=== PATIENT | male | born 1975 | race Caucasian/White ===

== ENCOUNTER 2024-06-28 11:27 | Emergency (ER) | payer OTHER, SELFPAY ==
[2024-06-28] VITALS (9 sets, daily range): BP systolic 111–123; BP diastolic 57–82; PULSE 61–82; RESP 18; TEMP 37.1; O2SAT 92–99; BMI 34.5
[2024-06-28 11:55] LABS: Add Manual Diff / Slide Review NO; Basophils Absolute Auto 100 /uL (0-100); Basophils Percent Auto 0.6 % (0-2); Eosinophils Absolute Auto 100 /uL (0-450); Eosinophils Percent Auto 0.7 % (2-4); Hematocrit 38.5 % (41-53); Hemoglobin 12.7 g/dL (13.5-17.5); Lymphocytes Absolute Auto 900 /uL (1100-4500); Lymphocytes Percent Auto 5.3 % (25-40); Mean Corpuscular HGB Conc 32.9 % (30-36); Mean Corpuscular Hemoglobin 28.9 PG (26-34); Mean Corpuscular Volume 87.8 fL (80-100); Monocytes Absolute Auto 1700 /uL (0-900); Neutrophils Absolute Auto 14000 /uL (1500-7000); Neutrophils Percent Auto 83.4 % (50-75); Platelet Count 405 X10^3/uL (150-400); Red Blood Cell Count 4.39 X10^6/uL (4.5-5.9); Red Cell Distribution Width 16.2 % (11.6-14.8); White Blood Cell Count 16.9 X10^3/uL (4.5-11.0)
[2024-06-28 12:07] LABS: Alanine Aminotransferase 49 IU/L (<50); Albumin Globulin Ratio 1.2 (1.0-2.8); Alkaline Phosphatase 99 U/L (38-126); Aspartate Aminotransferase 35 IU/L (17-59); BUN Creatinine Ratio 8.3 (6-22); Bilirubin Total 0.9 mg/dL (0.2-1.3); Blood Urea Nitrogen 11 mg/dL (9-20); Calcium 9.8 mg/dL (8.4-10.2); Carbon Dioxide 24 mmol/L (22-32); Chloride 96 mmol/L (98-107); Estimated Glomerular Filt Rate > 60 mL/min (>60); Globulin 3.4 g/dL (1.7-4.1); Glucose 123 mg/dL (70-99); HEMOLYSIS < 15 (0-50); Lipase 46 U/L (23-300); Potassium 4.6 mmol/L (3.4-5.1); Sodium 130 mmol/L (137-145); Total Protein 7.4 g/dL (6.3-8.2)
--- NOTE | 2024-06-28 12:20 | ED_ITS ---
HPI - Abdominal Pain General Chief Complaint: Abdominal Pain Stated Complaint: On going stomach pain. Possible Colitis flare up Time Seen by Provider: 06/28/24 11:45 Source: patient Mode of arrival: Ambulatory History of Present Illness HPI narrative: 49-year-old male history ulcerative colitis, kidney transplant 2017 presents with a complaint of fever of 102 yesterday. Patient states he has been having a flare recently over the last several years typically they will self resolve he was had 1 flare where he required prednisone orally after his renal transplant. Patient states he has had abdominal discomfort which she describes as sort of mid abdomen without radiation is relieved when he has a bowel movement he was having up to 10 times daily small diarrhea like stools with dark blood, he states he was not had any changes to urine output he denied any other urinary symptoms. Denies chest pain or shortness of breath. He gets nauseated if he tries to hold his bowel movements but no vomiting. States feels very similar to his prior episodes but has been more prolonged and then developed a fever yesterday. He follows through transplant on every 2 year schedule [facility] and [facility] through the [facility]. he states his initial kidney transplant was related to chronic bleed on mesalamine and caused renal dysfunction. Renal transplant was in 2017 through . Currently is prednisone 5 mg daily, tacrolimus, mycophenolate, losartan, amlodipine, metoprolol and an aspirin 81 mg daily. Was getting prednisone regularly prior to his renal transplant. Was on Humira prior to his renal transplant but stopped this secondary to all of his other immunosuppressants. Denies any other drug allergies. No tobacco, rare alcohol, no recreational drugs. Related Data Previous Rx's Medication Instructions Recorded dicyclomine 10 mg capsule 10 mg PO TID PRN abdominal pain 06/28/24 #10 caps prednisone 10 mg tablets in a dose See Rx Instructions PO .COMPLEX 06/28/24 pack #14 ea Allergies Allergy/AdvReac Type Severity Reaction Status Date / Time No Known Drug Allergies Allergy Verified 06/28/24 11:32 Review of Systems Review of Systems ROS Unobtainable: All systems reviewed & are unremarkable except as noted in HPI and below Patient History Social History Smoking Status: Never smoker Smoking Status: Never smoker Exam Narrative Exam Narrative: GENERAL: Alert and oriented x three, mild distress HEENT: Head normocephalic, atraumatic, EOMI, pupils reactive, face symmetric, moist mucous membranes NECK: Supple, full range of motion CARDIOVASCULAR: Regular rate and rhythm without murmurs, rubs or gallops. RESPIRATORY: Breath sounds equal bilaterally, no wheezes rales or rhonchi. ABDOMEN: Soft, mild periumbilical tenderness. Normoactive bowel sounds all 4 quadrants. No guarding or rebound, rigidity, no mass, no erythema or skin changes noted. : No CVA tenderness EXTREMITIES: Normal range of motion, no clubbing or edema. Neurovascularly intact NEUROLOGICAL: Cranial nerves II through XII grossly intact. Moving all extremities SKIN: Warm, dry, no petechiae, no rashes or lesions. Initial Vital Signs Initial Vital Signs: Vital Signs Temperature 98.7 F 06/28/24 11:32 Pulse Rate 82 06/28/24 11:32 Respiratory Rate 18 06/28/24 11:32 Blood Pressure 123/82 06/28/24 11:32 Pulse Oximetry 97 06/28/24 11:32 Oxygen Delivery Method Room Air 06/28/24 11:32 Course Orders Ordered: ED Orders 06/28/24 11:44 Complete Blood Count AUTO DIFF Stat Comprehensive Metabolic Panel Stat Lipase Stat Procalcitonin Stat 06/28/24 12:30 Lactate (Lactic Acid) Stat 06/28/24 12:41 CT kidney ureter bladder (KUB) Stat 06/28/24 12:47 Blood Culture Stat 06/28/24 13:31 Urine Microscopic Stat Discontinued Medications Dicyclomine HCl (Dicyclomine 10 Mg Capsule) 10 mg PO NOW ONE Stop: 06/28/24 12:47 Last Admin: 06/28/24 12:55 Dose: 10 mg Documented By: DAVID Sodium Chloride (Normal Saline 0.9%) 1,000 mls @ 1,000 mls/hr IV BOLUS ONE Stop: 06/28/24 13:40 Last Infusion: 06/28/24 14:11 Dose: Infused Documented By: Admin: 06/28/24 12:55 Dose: 1,000 mls/hr Documented By: DAVID Ondansetron HCl (Ondansetron 4 Mg/2 Ml Inj) 4 mg IV NOW PRN PRN Reason: Nausea And Vomiting Ondansetron HCl (Ondansetron 4 Mg Odt) 4 mg PO NOW PRN PRN Reason: Nausea And Vomiting Prednisone (Prednisone 20 Mg Tablet) 40 mg PO NOW ONE Stop: 06/28/24 14:08 Last Admin: 06/28/24 14:15 Dose: 40 mg Documented By: DAVID Vital Signs Vital signs: Vital Signs - 8 hr 06/28/24 11:32 06/28/24 11:36 06/28/24 11:38 Temperature 98.7 F Pulse Rate 82 82 80 Respiratory Rate 18 Blood Pressure 123/82 Pulse Oximetry 97 99 97 Oxygen Delivery Method Room Air 06/28/24 11:38 06/28/24 12:00 06/28/24 12:00 Temperature Pulse Rate 75 Respiratory Rate Blood Pressure 122/79 122/76 Pulse Oximetry 95 Oxygen Delivery Method 06/28/24 12:30 06/28/24 12:30 06/28/24 13:00 Temperature Pulse Rate 79 Respiratory Rate Blood Pressure 121/63 121/73 Pulse Oximetry 94 Oxygen Delivery Method 06/28/24 13:00 06/28/24 13:32 06/28/24 13:33 Temperature Pulse Rate 78 72 74 Respiratory Rate Blood Pressure Pulse Oximetry 97 92 97 Oxygen Delivery Method Room Air 06/28/24 13:33 06/28/24 14:00 06/28/24 14:00 Temperature Pulse Rate 61 Respiratory Rate Blood Pressure 119/67 111/57 L Pulse Oximetry 96 Oxygen Delivery Method MDM - Abdominal Pain Lab Data 06/28/24 11:44 06/28/24 11:44 Labs: Lab Results 06/28/24 06/28/24 06/28/24 Range/Units 11:44 12:30 13:31 WBC 16.9 H (4.5-11.0) X10^3/uL RBC 4.39 L (4.5-5.9) X10^6/uL Hgb 12.7 L (13.5-17.5) g/dL Hct 38.5 L (41-53) % MCV 87.8 (80-100) fL MCH 28.9 (26-34) PG MCHC 32.9 (30-36) % RDW 16.2 H (11.6-14.8) % Plt Count 405 H (150-400) X10^3/uL Neut % (Auto) 83.4 H (50-75) % Lymph % (Auto) 5.3 L (25-40) % [place] % (Auto) 10.0 (3-14) % Eos % (Auto) 0.7 L (2-4) % Baso % (Auto) 0.6 (0-2) % Neut # (Auto) 61703 H (2576-9076) /uL Lymph # (Auto) 900 L (3319-1009) /uL [place] # (Auto) 1700 H (0-900) /uL Eos # (Auto) 100 (0-450) /uL Baso # (Auto) 100 (0-100) /uL Sodium 130 L (137-145) mmol/L Potassium 4.6 (3.4-5.1) mmol/L Chloride 96 L (98-107) mmol/L Carbon Dioxide 24 (22-32) mmol/L BUN 11 (9-20) mg/dL Creatinine 1.33 H (0.66-1.25) mg/dL Estimated GFR > 60 (>60) mL/min BUN/Creatinine Ratio 8.3 (6-22) Glucose 123 H (70-99) mg/dL Lactate 1.2 (0.7-2.1) mmol/L Calcium 9.8 (8.4-10.2) mg/dL Total Bilirubin 0.9 (0.2-1.3) mg/dL AST 35 (17-59) IU/L ALT 49 (<50) IU/L Alkaline Phosphatase 99 (38-126) U/L Total Protein 7.4 (6.3-8.2) g/dL Albumin 4.0 (3.5-5.0) g/dL Globulin 3.4 (1.7-4.1) g/dL Albumin/Globulin Ratio 1.2 (1.0-2.8) Lipase 46 (23-300) U/L Procalcitonin 0.164 (<0.5) ng/mL Urine RBC None seen (0-5/HPF) Urine WBC 0-1/hpf (0-5/HPF) Ur Squamous Epith Cells None seen (0-5/HPF) Urine Bacteria None seen (None) Ur Culture Indicated? Cult not indicated Vol Urine Centrifuged 10ml (spun) Point of care testing: Urine Dip Bedside Urine Glucose Negative Bedside Urine Bilirubin - Negative Bedside Urine Ketone - Negative Urine Specific [place] 1.010 Bedside Urine Occult Blood - Negative Bedside Urine pH 6.5 Bedside Urine Protein +/- 15 Bedside Urine Urobilinogen - Negative Bedside Urine Nitrite - Negative Bedside Urine Leukocytes - Negative Esterase MDM Narrative Medical decision making narrative: Labs show white count of 16.9 hemoglobin of 12.7 platelets are 405 predominance of neutrophils. Sodium is 130 chloride 96 creatinine is 1.33 glucose is 123 LFTs are normal. Procalcitonin is 0.164. Lactate is 1.2 Blood cultures obtained. Point of care urine has protein, negative nitrates and leuks, no red cells 1 white cell no squamous no bacteria. CT KUB shows diffuse colonic wall thickening with surrounding inflammation consistent with ulcerative colitis flare. Right pelvic transplant kidney appears grossly within normal limits negative kidneys appear atrophic. Prominent mildly enlarged mesenteric lymph nodes. Small hiatal hernia. CT KUB was obtained as patient has history of renal transplant per patient his creatinine is at baseline but we will avoid contrast at this time as we are looking more for perforation and suspect his use he was source of symptoms. Patient reports fever yesterday none today did have Tylenol this morning, he appears nontoxic with a appropriate vitals but does have a white count is 16 so sepsis labs were added including procalcitonin lactate and blood cultures were obtained particularly in the setting of history of transplant. Patient has a dose of Bentyl here, appears is renally excreted but does not appear to be nephrotoxic or have any interactions did discuss with the pharmacist. Patient states that this was helpful. Discussed findings we will have patient follow up with [facility] transplant team [facility] if doing well or having mild symptoms. We will start on oral prednisone as patient has tolerated in the past he states typically has not had more than 40 mg we will do this for 3 days and then taper down words. He was to call his transplant team to let them know about his current medications. Discussed can try Bentyl but use with caution as it was renally excreted. Discharge Plan Departure Patient Disposition: Home Clinical Impression: Ulcerative colitis Instructions: DI for Ulcerative Colitis Activity Restrictions/Additional Instructions: Follow up with your transplant team [facility] through the [facility] or [facility]. Call to let them know that you are currently on prednisone and received a prescription for Bentyl for spasm. Your CT does show changes consistent with ulcerative colitis. Your labs show your white blood cell count is elevated at 16, creatinine today is 1.33, your sodium is a little low at 130. You do have blood cultures pending. Take steroids until completed. You can take Bentyl 1 tablet every 8 hours as needed for abdominal cramping or spasm. You can take acetaminophen with this medication. Prescription sent to [facility] in [place]. Please return if you have any persistent or recurrent fevers, increasing pain, vomiting, worsening black or bloody stools, any lightheadedness or passing out, decrease or changes to urination or other new or concerning changes. Prescriptions: New prednisone 10 mg tablets,dose pack See Rx Instructions .ROUTE .COMPLEX Qty: 14 0RF Rx Instructions: Take 40 mg (4 tablets) p.o. x2 days, then 30 mg (3 tablets) p.o. x1 day, then 20 mg (2 tablets) p.o. x1 day, then 10 mg (1 tablet) p.o. x1 day dicyclomine 10 mg capsule 10 mg PO TID PRN (Reason: abdominal pain) Qty: 10 0RF Stand Alone Forms: Patient Portal/API/Survey
--- NOTE | 2024-06-28 12:41 | DI.CT.S_ITS ---
PROCEDURE: CT KIDNEY URETER BLADDER (KUB) INDICATIONS: abd pain, bloody diarrhea, fever,hx UC and kidney transplant TECHNIQUE: After the administration of oral contrast, 5 mm thick sections acquired from the diaphragms to the symphysis. 5 mm coronal and sagittal reformats were performed. For radiation dose reduction, the following was used: automated exposure control, adjustment of mA and/or kV according to patient size. COMPARISON: None. FINDINGS: Image quality: Diagnostic. Lower Chest: No significant findings. ABDOMEN: Liver: No contour-deforming mass. Gallbladder: No radiopaque gallstones or wall thickening. Biliary ducts: No biliary dilation. Pancreas: No ductal dilation. Spleen: Size is within normal limits. Adrenal Glands: No adrenal nodules. Kidneys and Ureters: [place] kidneys are atrophic. Right pelvic transplant kidney appears grossly within normal limits. Stomach and Bowel: Small hiatal hernia. Wall thickening throughout the entirety of the colon with surrounding inflammation, most pronounced within the ascending colon. Peritoneum: No abnormal intraperitoneal fluid. No free air. Ventral Wall: No significant hernia. Abdominal Nodes: Multiple prominent and mildly enlarged mesenteric lymph nodes. Vessels: Aorta and inferior vena cava are normal in size. PELVIS: Pelvic Organs: Unremarkable. Bladder: Unremarkable. Pelvic Nodes: No enlarged lymph nodes. Miscellaneous: Small bilateral fat containing inguinal hernias are seen, larger on the right. Bones: No aggressive osseous abnormality. IMPRESSION: 1. Diffuse colonic wall thickening with surrounding inflammation, consistent with ulcer colitis flare. 2. Right pelvic transplant kidney appears grossly within normal limits. [place] kidneys are atrophic. Dictated by: Hunter Mar M.D. on 06/28/2024 at 13:40 Approved by: Hunter Mar M.D. on 06/28/2024 at 13:45
[2024-06-28] MEDS: DICYCLOMINE 10 MG CAPSULE PO (12:55)
[2024-06-28] MEDS: SODIUM CHLORIDE 0.9% 1,000 ML 1000 ML IV (12:55)
[2024-06-28 13:08] LABS: Lactate (Lactic Acid) 1.2 mmol/L (0.7-2.1)
[2024-06-28 13:09] LABS: Procalcitonin 0.164 ng/mL (<0.5)
[2024-06-28 13:52] LABS: Bacteria Urine None Seen; Culture Indicated Urine Cult Not Indicated; RBC Urine None Seen (0-5/HPF); Squamous Epithelial Cell Urine None Seen (0-5/HPF); Urine Volume 10mL (spun); WBC Urine 0-1/HPF (0-5/HPF)
[2024-06-28] MEDS: predniSONE 20 MG TABLET 40 MG PO (14:15)
== END 2024-06-28 14:22 | disposition home or self-care (01) ==
PROVIDERS: Emergency Provider Emergency Medicine
DX: K51.90 Ulcerative colitis, unspecified, without complications (principal)
CPT/HCPCS: 36415; 74176; 80053; 81003; 81015; 83605; 83690; 84145; 85025; 87040; 96360; 99284

== ENCOUNTER 2024-11-05 13:29 | Emergency (ER) | payer OTHER, BC, SELFPAY ==
[2024-11-05] VITALS (18 sets, daily range): BP systolic 109–155; BP diastolic 66–82; PULSE 64–78; RESP 14–16; TEMP 36.9; O2SAT 76–100; BMI 33.9
[2024-11-05 14:09] LABS: Add Manual Diff / Slide Review NO; Hematocrit 23.0 % (41-53); Hemoglobin 7.5 g/dL (13.5-17.5); Lymphocytes Absolute Auto 800 /uL (1100-4500); Mean Corpuscular HGB Conc 32.5 % (30-36); Mean Corpuscular Hemoglobin 24.7 PG (26-34); Mean Corpuscular Volume 76.1 fL (80-100); Platelet Count 561 X10^3/uL (150-400)
[2024-11-05 14:19] LABS: Alanine Aminotransferase 19 IU/L (<50); Albumin 3.9 g/dL (3.5-5.0); Albumin Globulin Ratio 1.0 (1.0-2.8); Alkaline Phosphatase 79 U/L (38-126); Blood Urea Nitrogen 9 mg/dL (9-20); Calcium 9.7 mg/dL (8.4-10.2); Carbon Dioxide 25 mmol/L (22-32); Chloride 98 mmol/L (98-107); Estimated Glomerular Filt Rate > 60 mL/min (>60); Globulin 3.8 g/dL (1.7-4.1); Glucose 99 mg/dL (70-99); HEMOLYSIS < 15 (0-50); Potassium 4.5 mmol/L (3.4-5.1); Sodium 131 mmol/L (137-145); Total Protein 7.7 g/dL (6.3-8.2)
--- NOTE | 2024-11-05 18:09 | ED_ITS ---
HPI - General Adult General Chief complaint: Weakness Stated complaint: Hemoglobin 6.8/Ulcerative collitis/[facility] Time Seen by Provider: 11/05/24 18:08 Source: patient Mode of arrival: Ambulatory History of Present Illness HPI narrative: 49-year-old male with history of ulcerative colitis diagnosed 2001, recalls taking mesalamine, which lead to kidney problems and kidney failure, later renal transplant [facility], followed by retail representative [facility] Dr. Mcleod or with last visit about 1 year ago. No longer seeing any gastroenterology specialist, not on any suppressive therapies specific to ulcerative colitis, last colonoscopy through GI at [facility] 1 year ago reportedly normal, awaiting reestablish care with GI at [facility], previously followed by Dr. Stevenson who apparently has left the facility. More recently seen by PCP at [facility] with left lower extremity cellulitis, had course of antibiotic likely cephalexin, did not help, then Bactrim, with subsequent resolution of left lower extremity, completing antibiotics about 2 weeks ago. Having intermittent bright red blood per rectum, no abdominal pain. No fevers or chills. Had outpatient blood draw Wednesday 2 days ago and was told his hemoglobin was 6.8, here for repeat labs possible transfusion. Has had some shortness of breath, lightheadedness, generalized weakness, denies chest pain. Related Data Previous Rx's ?Medication ?Instructions ?Recorded dicyclomine 10 mg capsule 10 mg PO TID PRN abdominal p ain 06/28/24 #10 caps prednisone 10 mg tablets in a dose See Rx Instructions PO .COMPLEX 06/28/24 pack #14 ea Allergies Allergy/AdvReac Type Severity Reaction Status Date / Time No Known Drug Allergies Allergy Verified 11/05/24 13:40 Patient History Social History Smoking Status: Never smoker Smoking Status: Never smoker Exam Narrative Exam Narrative: GENERAL: Well-developed patient, in mild distress. HEAD: Atraumatic. Normocephalic. EYES: Pupils equal round and reactive. Extraocular motions intact. No scleral icterus. No injection or drainage. ENT: Nose without bleeding, purulent drainage. Throat without erythema, tonsillar hypertrophy or exudate. Airway patent. NECK: Trachea midline. Non tender CARDIOVASCULAR: Regular rate and rhythm without murmurs, gallops, or rubs. RESPIRATORY: Clear to auscultation. Breath sounds equal bilaterally. No wheezes, rales, or rhonchi. GASTROINTESTINAL: Abdomen nondistended, soft, mild tenderness diffuse not predominantly upper versus lower or right versus left, no central tenderness, no ventral hernias office, bowel tones unremarkable, no rushes or tinkles. EXTREMITIES: No edema or joint tenderness. BACK: Nontender without deformity or crepitance. No flank tenderness. NEURO: AOx3. Motor functions grossly nonfocal. SKIN: No rash or erythema of visible areas Initial Vital Signs Initial Vital Signs: Vital Signs Temperature 98.5 F 11/05/24 13:40 Pulse Rate 75 11/05/24 13:40 Respiratory Rate 16 11/05/24 13:40 Blood Pressure 132/81 11/05/24 13:40 Pulse Oximetry 100 11/05/24 13:40 Oxygen Delivery Method Room Air 11/05/24 13:40 Course Orders Ordered: ED Orders 11/05/24 13:54 CBC Auto Diff [Complete Blood Count AUTO DIFF] Stat CMP [Comprehensive Metabolic Panel] Stat Prothrombin Time INR Stat Troponin I Stat Type and Screen Stat 11/05/24 18:17 XR chest 1V Stat EKG-12 Lead Stat 11/05/24 19:08 Troponin I Stat Vital Signs Vital signs: Vital Signs - 8 hr 11/05/24 13:40 11/05/24 14:44 11/05/24 14:50 Temperature 98.5 F Pulse Rate 75 70 73 Respiratory Rate 16 Blood Pressure 132/81 Pulse Oximetry 100 95 97 Oxygen Delivery Method Room Air 11/05/24 14:50 11/05/24 15:00 11/05/24 15:00 Temperature Pulse Rate 69 Respiratory Rate Blood Pressure 120/79 114/75 Pulse Oximetry 98 Oxygen Delivery Method 11/05/24 15:30 11/05/24 15:30 11/05/24 16:00 Temperature Pulse Rate 69 Respiratory Rate Blood Pressure 109/68 116/73 Pulse Oximetry 95 Oxygen Delivery Method 11/05/24 16:00 11/05/24 16:30 11/05/24 16:30 Temperature Pulse Rate 64 71 Respiratory Rate Blood Pressure 117/71 Pulse Oximetry 94 94 Oxygen Delivery Method 11/05/24 17:00 11/05/24 17:00 11/05/24 17:30 Temperature Pulse Rate 67 Respiratory Rate Blood Pressure 124/66 126/74 Pulse Oximetry 96 Oxygen Delivery Method 11/05/24 17:30 11/05/24 18:40 11/05/24 19:13 Temperature Pulse Rate 72 73 Respiratory Rate 14 Blood Pressure Pulse Oximetry 97 95 76 L Oxygen Delivery Method Room Air 11/05/24 19:14 11/05/24 19:14 11/05/24 19:30 Temperature Pulse Rate 76 76 Respiratory Rate Blood Pressure 131/76 Pulse Oximetry 95 96 Oxygen Delivery Method 11/05/24 20:00 11/05/24 20:01 11/05/24 20:01 Temperature Pulse Rate 77 74 Respiratory Rate Blood Pressure 155/82 H Pulse Oximetry 95 98 Oxygen Delivery Method Medical Decision Making Lab Data Lab results reviewed: Yes I reviewed the patient's lab results. Lab results narrative: White blood cell count 9700, hemoglobin 7.5, platelets 561,000 increased. Glucose 99. BUN 9 with creatinine 1.25 normal renal function. Serum carbon dioxide 25. Sodium 131, with potassium 4.5 normal. Liver functions normal. Blood type O positive. 11/05/24 13:54 11/05/24 13:54 Labs: Lab Results 11/05/24 11/05/24 Range/Units 13:54 19:08 WBC 9.7 (4.5-11.0) X10^3/uL RBC 3.02 L (4.5-5.9) X10^6/uL Hgb 7.5 L (13.5-17.5) g/dL Hct 23.0 L (41-53) % MCV 76.1 L (80-100) fL MCH 24.7 L (26-34) PG MCHC 32.5 (30-36) % RDW 16.0 H (11.6-14.8) % Plt Count 561 H (150-400) X10^3/uL Neut % (Auto) 82.5 H (50-75) % Lymph % (Auto) 8.4 L (25-40) % [place] % (Auto) 7.5 (3-14) % Eos % (Auto) 0.8 L (2-4) % Baso % (Auto) 0.8 (0-2) % Neut # (Auto) 8000 H (5342-3696) /uL Lymph # (Auto) 800 L (3971-9485) /uL [place] # (Auto) 700 (0-900) /uL Eos # (Auto) 100 (0-450) /uL Baso # (Auto) 100 (0-100) /uL PT 13.4 H (9.4-12.5) SECONDS INR 1.2 (0.9-1.3) Sodium 131 L (137-145) mmol/L Potassium 4.5 (3.4-5.1) mmol/L Chloride 98 (98-107) mmol/L Carbon Dioxide 25 (22-32) mmol/L BUN 9 (9-20) mg/dL Creatinine 1.25 (0.66-1.25) mg/dL Estimated GFR > 60 (>60) mL/min BUN/Creatinine Ratio 7.2 (6-22) Glucose 99 (70-99) mg/dL Calcium 9.7 (8.4-10.2) mg/dL Total Bilirubin 0.4 (0.2-1.3) mg/dL AST 26 (17-59) IU/L ALT 19 (<50) IU/L Alkaline Phosphatase 79 (38-126) U/L Troponin I < 0.012 < 0.012 (0.01-0.034) ng/mL Total Protein 7.7 (6.3-8.2) g/dL Albumin 3.9 (3.5-5.0) g/dL Globulin 3.8 (1.7-4.1) g/dL Albumin/Globulin Ratio 1.0 (1.0-2.8) Blood Type O Positive Antibody Screen Negative Imaging Data Chest x-ray: Radiologist's Impression: [address] [address] XRay Report Signed Patient: Charan You MR#: [id number] : 1975 Acct:[id number] Age/Sex: 49 / M Date of Service: 11/05/24 Loc: ED Accession Number: [id number] Procedure: XR chest 1V Ordering Provider: Musa Fitzgerald MD PROCEDURE: XR CHEST 1V INDICATIONS: dyspnea TECHNIQUE: One view of the chest was acquired. COMPARISON: None. FINDINGS: Surgical changes and devices: None. Lungs and pleura: Lungs are clear. No pleural effusions or pneumothorax. Mediastinum: Mediastinal contours appear normal. Heart size is normal. Bones and chest wall: No suspicious bony lesions. Overlying soft tissues appear unremarkable. IMPRESSION: No acute cardiopulmonary abnormality is seen. Approved by: Steven López M.D. on 11/05/2024 at 18:50 ECG Data Attestation: I personally reviewed and interpreted this ECG as follows: Interpretation: Normal sinus rhythm with rate of 68, no obvious ST segment elevation or depression changes. NE 188, QRS 90, QTC 401. MDM Narrative Medical decision making narrative: 49-year-old male with history of longstanding ulcerative colitis, previous on remitted therapy Humira biologic, which he attributes to cause for renal failure, leading to kidney transplantation surgery 2017 at [facility], followed by [facility], has been followed by [facility] most recently Dr. Cline who was apparently left the facility, last colonoscopy at [facility] one year ago reportedly normal. Now with outpatient blood draw showing hemoglobin 6.8. Admitting to intermittent bright red blood per rectum. No fevers or chills. No abdominal pain. Does admit to some shortness of breath and generalized weakness. Afebrile, SIRS screen negative. Abdomen arm benign. EKG, chest x-ray, labs pending. EKG shows normal sinus rhythm with rate of 68, no obvious ST segment elevation or depression changes. Lab data: White blood cell count 9700, hemoglobin 7.5, platelets 561,000 increased. Glucose 99. BUN 9 with creatinine 1.25 normal renal function. Serum carbon dioxide 25. Sodium 131, with potassium 4.5 normal. Liver functions normal. Troponin negative/unmeasurable. Blood type O positive. Chest x-ray no acute changes. See radiology report. Interval repeat troponin also negative/unmeasurable. 2129, discussed with [facility]. He believes patient can be seen in their clinic in close follow up, took demographic and phone contact information. There GI clinic should be contacting him this week. Call [facility] if patient has not heard anything in the next couple of days. Return precautions discussed. Discharge Plan Departure Patient Disposition: Home Clinical Impression: Anemia, History of ulcerative colitis, History of kidney transplant, Lower gastrointestinal bleeding Activity Restrictions/Additional Instructions: History of longstanding ulcerative colitis, previous biologic therapy, later development of renal failure, status post kidney transplantation in 2017, taking immunosuppressant therapy including low-dose prednisone steroid. Prior GI consultation with [facility] who has left the practice, awaiting follow up appointment. Recent 2 weeks of bright red blood per rectum that seems to be improving. Blood draw done on Wednesday was suspicious for hemoglobin 6.8. On repeat today however it is higher than that at 7.5. No gastrointestinal bleeding symptoms while your watched here and observed and evaluated for a number of hours. No tenderness on your abdominal examination. Case was discussed with [facility] GI doctor Dy who took down your name and date of and phone number, you should be contacted early this week for close follow up appointment. Contact [facility] GI clinic if you not heard from them by Wednesday. Continue taking your chronic medications as directed. Recheck earlier to this/nearest emergency department for any change worsening symptoms or any concerns prior. Prescriptions: No Action prednisone 10 mg tablets,dose pack See Rx Instructions .ROUTE .COMPLEX Qty: 14 0RF Rx Instructions: Take 40 mg (4 tablets) p.o. x2 days, then 30 mg (3 tablets) p.o. x1 day, then 20 mg (2 tablets) p.o. x1 day, then 10 mg (1 tablet) p.o. x1 day dicyclomine 10 mg capsule 10 mg PO TID PRN (Reason: abdominal pain) Qty: 10 0RF Stand Alone Forms: Patient Portal/API
--- NOTE | 2024-11-05 18:17 | DI.RAD.S_ITS ---
PROCEDURE: XR CHEST 1V INDICATIONS: dyspnea TECHNIQUE: One view of the chest was acquired. COMPARISON: None. FINDINGS: Surgical changes and devices: None. Lungs and pleura: Lungs are clear. No pleural effusions or pneumothorax. Mediastinum: Mediastinal contours appear normal. Heart size is normal. Bones and chest wall: No suspicious bony lesions. Overlying soft tissues appear unremarkable. IMPRESSION: No acute cardiopulmonary abnormality is seen. Approved by: Steven López M.D. on 11/05/2024 at 18:50
--- NOTE | 2024-11-05 18:17 | EKG_ITS ---
[address] [address] Test Date: 2024-11-05 Pat Name: Charan You Department: [facility] Room: Gender: Male Residential Treatment Counselor: JESUS : 1975 Requested By: Order Number: [id number] Reading MD: Michael Bailey MD Measurements Intervals [place] Rate: 68 P: 3 AL: 188 QRS: 5 QRSD: 90 T: 8 QT: 378 QTc: 401 Interpretive Statements Normal sinus rhythm Electronically Signed On 11-06-2024 5:57:58 PDT by Michael Bailey MD
[2024-11-05 18:29] LABS: INR 1.2 (0.9-1.3); Prothrombin Time 13.4 SECONDS (9.4-12.5)
[2024-11-05 19:04] LABS: Troponin I < 0.012 ng/mL (0.01-0.034)
[2024-11-05 19:40] LABS: Troponin I < 0.012 ng/mL (0.01-0.034)
== END 2024-11-05 21:58 | disposition home or self-care (01) ==
PROVIDERS: Emergency Medicine; Emergency Provider Emergency Medicine
DX: D64.9 Anemia, unspecified (principal); K92.2 Gastrointestinal hemorrhage, unspecified; R06.02 Shortness of breath; R42 Dizziness and giddiness; Z87.19 Personal history of other diseases of the digestive system; Z94.0 Kidney transplant status
CPT/HCPCS: 36415; 71045; 80053; 84484; 85025; 85610; 86850; 86900; 86901; 93005; 93010; 99283; 99284